=== PATIENT | male | born 1960 | race Caucasian/White ===

== ENCOUNTER 2020-09-23 04:57 | Emergency (ER) | payer OTHER ==
[~2020-09-23] VITALS: Ht 193 cm; Wt 102.1 kg
[2020-09-23] MEDS ORDERED: Norco 5-325 Ta1 EACH (05:23)
[2020-09-23] MEDS ORDERED: GABA100 (05:23)
[2020-09-23] MEDS ORDERED: Percocet 5-3251 EACH PO (06:19)
[2020-09-23] MEDS ORDERED: Neurontin 300300 MG PO (06:19)
[2020-09-23] MEDS ORDERED: LIDO700A20 TOP (06:21)
== END 2020-09-23 07:00 | disposition home or self-care (01) ==
LOC: ER 04:57
DX: M54.2 Cervicalgia (principal); M79.602 Pain in left arm; Z98.1 Arthrodesis status
CPT/HCPCS: 96372; 99283-25; A9270; J1170; J2270

== ENCOUNTER 2024-03-09 15:04 | Emergency (ER) | payer OTHER ==
[~2024-03-09] VITALS: Ht 193 cm; Wt 106.6 kg
[~2024-03-09 15:04] MED LIST: ASPI81CH PO; GABA100; LIDO700A20 TOP; Naltrexone HCl50 MG PO; Neurontin 300300 MG PO; Norco 5-325 Ta1 EACH; Percocet 5-3251 EACH PO; ROSUVASTATIN CA20 MG PO; SILDENAFIL CITR50 MG PO
[2024-03-09 16:02] LABS: BASOPHILS ABSOLUTE AUTO 0.06 K/mm3 (0.00-0.23); BASOPHILS PERCENT AUTO 1 % (0-2); EOSINOPHILS ABSOLUTE AUTO 0.03 K/mm3 (0.00-0.68); EOSINOPHILS PERCENT AUTO 0 % (0-6); Hemoglobin 14.5 g/dL (13.5-17.5); IMMATURE GRAN ABSOLUTE AUTO 0.03 K/mm3 (0.00-0.10); IMMATURE GRAN PERCENT AUTO 0 % (0-1); LYMPHOCYTES ABSOLUTE AUTO 0.87 K/mm3 (0.84-5.20); LYMPHOCYTES PERCENT AUTO 9 % (21-46); MONOCYTES ABSOLUTE AUTO 0.71 K/mm3 (0.16-1.47); MONOCYTES PERCENT AUTO 7 % (4-13); Mean Corpuscular HGB 30.1 pg (26.0-34.0); Mean Corpuscular HGB Conc 34.5 g/dL (31.5-36.5); Mean Corpuscular Volume 87 fL (80-100); Mean Platelet Volume 9.7 fL (9.1-12.4); NEUTROPHILS ABSOLUTE AUTO 8.05 K/mm3 (1.96-9.15); NEUTROPHILS PERCENT AUTO 83 % (41-73); Platelet Count 283 K/mm3 (150-400); RDW Coefficient Variation 13.9 % (11.7-14.2); RDW Standard Deviation 44.5 fL (35.1-46.3); Red Blood Cell Count 4.82 M/mm3 (4.30-5.90); White Blood Cell Count 9.75 K/mm3 (4.00-11.30)
[2024-03-09 16:12] LABS: Albumin, Blood 4.6 g/dL (3.4-5.0); Albumin/Globulin Ratio 1.2 (0.8-1.8); Bilirubin, Total 1.1 mg/dL (0.1-1.0); Bun/Creatinine Ratio 21.1 (12.0-20.0); Creatinine, Blood 0.71 mg/dL (0.60-1.20); Globulin, Blood 3.7 g/dL (2.2-4.0); Potassium, Blood 3.7 mmol/L (3.5-5.5); Total Protein, Blood 8.3 g/dL (6.4-8.2)
[2024-03-09] MEDS ORDERED: Thiamine HCl 100 MG Tab PO ONE (17:50)
[2024-03-09] MEDS ORDERED: NS 1,000 ML IV SCH (17:50)
[2024-03-09] MEDS ORDERED: Ondansetron HCl 2 MG / ML 2ML Vial IV ONE (17:50)
[2024-03-09] MEDS ORDERED: Folic Acid 1 MG TAB PO ONE (17:50)
[2024-03-09] MEDS ORDERED: ChlordiazePOXIDE 25 MG Cap PO ONE (17:50)
[2024-03-09] MEDS ORDERED: CHLO25 PO (19:11)
[2024-03-09] MEDS ORDERED: ONDA4ODT MM (19:11)
[2024-03-09 19:23] VITALS: BP 145/78
== END 2024-03-09 19:25 | disposition home or self-care (01) ==
LOC: ER 15:04
PROVIDERS: Student in an Organized Health Care Education/Training Program
DX: F10.239 Alcohol dependence with withdrawal, unspecified (principal); Z88.2 Allergy status to sulfonamides; Z79.82 Long term (current) use of aspirin; Z79.899 Other long term (current) drug therapy; Z87.891 Personal history of nicotine dependence; Z71.41 Alcohol abuse counseling and surveillance of alcoholic
CPT/HCPCS: 80053; 85025; 93005; 93010; A9270; J2405; J7030

== ENCOUNTER 2024-05-31 08:56 | Day surgery (SDC) | payer OTHER ==
[~2024-05-31] VITALS: Ht 193 cm; Wt 103.9 kg
[~2024-05-31 08:56] MED LIST changes: +CHLO25 PO; +Lactated Ringer's 1,000 ML IV ONE; +ONDA4ODT MM; +propofoL 50 ML IV ONE
[2024-05-31] MEDS ORDERED: Lactated Ringer's 1,000 ML IV ONE (10:00)
[2024-05-31 11:40] VITALS: BP 118/78
== END 2024-05-31 11:43 | disposition home or self-care (01) ==
LOC: ORSCSDS 08:56
PROVIDERS: Specialist
PROC: 0DBL8ZX Excision of Transverse Colon, Via Natural or Artificial Opening Endoscopic, Diagnostic (ICD-10-PCS; principal; 2024-05-31 10:15)
DX: Z12.11 Encounter for screening for malignant neoplasm of colon (principal); Z86.0101 Personal history of adenomatous and serrated colon polyps; D12.3 Benign neoplasm of transverse colon; K64.8 Other hemorrhoids; K57.30 Diverticulosis of large intestine without perforation or abscess without bleeding; E78.5 Hyperlipidemia, unspecified; Z79.899 Other long term (current) drug therapy
CPT/HCPCS: 88305; J2704; J7120